=== PATIENT | female | born 2000 ===

== ENCOUNTER → 2020-06-27 | Outpatient (CLI) | payer OTHER | END | disposition home or self-care (01) | LOC: PPH VACUNA → EDBD | DX: Z23 Encounter for immunization (principal) ==

== ENCOUNTER 2020-07-18 08:00 | Outpatient (CLI) | payer OTHER | END 2020-07-18 08:30 | disposition home or self-care (01) | LOC: PPH VACUNA 08:00 | DX: Z23 Encounter for immunization (principal) ==

== ENCOUNTER 2020-07-26 12:04 | Outpatient (CLI) | payer OTHER | END 2020-07-26 12:13 | disposition home or self-care (01) | LOC: RAD 12:04 → EDBD 12:04 → RAD 12:13 | DX: M54.5 Low back pain (principal) ==